=== PATIENT | male | born 1985 | race Caucasian/White ===

== ENCOUNTER 2017-03-03 19:45 | Emergency (ER) | payer BC ==
[2017-03-03 19:46] VITALS: BP 130/77; PULSE 98; RESP 16; TEMP 99; O2SAT 100
--- NOTE | 2017-03-03 20:50 | PD ---
Physical Exam Time Seen by Provider: 20:47 Narrative 31yo M c/o L sided kidney stone. seen yesterday at another hospital and was told he would pass the stone. Was called an hour ago and told by urologist stone may be too big to pass and to go to ER. Reports Left sided flank pain. Denies V, fever, hematuria, dysuria. VSS. Patient seen in triage. Awaiting bed placement. Data Data Last Documented VS Vital Signs Date Time Temp Pulse Resp B/P Pulse Ox O2 Delivery O2 Flow Rate FiO2 03/03/17 19:46 99.0 98 16 130/77 100 Room Air MDM Supervised Visit with LISA: Kirstie Krause Mar 03, 2017 20:50
[2017-03-03] MEDS ORDERED: SODIUM CHLOR 0.9% 1000 ML INJ 1,000 ML IV ONE (20:53)
[2017-03-03] MEDS ORDERED: SODIUM CHLORIDE 0.9% FLUSH 10 ML FLUSH IVF PRN (21:00)
[2017-03-03] MEDS ORDERED: PROM25TA5 PO ×2 (21:17)
[2017-03-03] MEDS ORDERED: PERC5TAB12 PO ×3 (21:17→23:36)
--- NOTE | 2017-03-03 21:47 | RADRPT ---
EXAM DATE/TIME: 03/03/2017 21:26 [facility] COMPARISON: No previous studies available for comparison. INDICATIONS : Left flank pain with hematuria. ORAL CONTRAST: No oral contrast ingested. RADIATION DOSE: 13.88 CTDIvol (mGy) MEDICAL HISTORY : Renal calculi. SURGICAL HISTORY : None. ENCOUNTER: Initial ACUITY: 2 days PAIN SCALE: 8/10 LOCATION: Left flank TECHNIQUE: Volumetric scanning of the abdomen and pelvis was performed. Using automated exposure control and ad justment of the mA and/or kV according to patient size, radiation dose was kept as low as reasonably achievable to obtain optimal diagnostic quality images. FINDINGS: LOWER LUNGS: The visualized lower lungs are clear. LIVER: Homogeneous density without lesion. There is no dilation of the biliary tree. No calcified gallston es. SPLEEN: Normal size without lesion. PANCREAS: Within normal limits. KIDNEYS: The right kidney is unremarkable. There is a proximal left ureteral calculus just below the ureteral pelvic junction measuring approximately 5 x 7 mm in size. There is mild hydronephrosis. ADRENAL GLANDS: Within normal limits. VASCULAR: There is no aortic aneurysm. BOWEL/MESENTERY: The stomach, small bowel, and colon demonstrate no acute abnormality. There is no free intraperitone al air or fluid. ABDOMINAL WALL: Within normal limits. RETROPERITONEUM: There is no lymphadenopathy. BLADDER: No wall thickening or mass. REPRODUCTIVE: Within normal limits. INGUINAL: There is no lymphadenopathy or hernia. MUSCULOSKELETAL: Within normal limits for patient age. CONCLUSION: 1. Proximal left ureteral calculus with mild hydronephrosis. 2. No renal calculi. Donovan Sands MD on March 03, 2017 at 21:43 Board Certified Radiologist. This report was verified electronically.
--- NOTE | 2017-03-03 21:50 | PD ---
HPI Chief Complaint: Flank/Kidney Pain Time Seen by Provider: 21:14 Travel History International Travel<30 days: No Contact w/Intl Traveler<30days: No Traveled to known affect area: No History of Present Illness HPI Patient is a 31-year-old male presents emergency department for evaluation of a kidney stone. Patient is currently traveling from [place] to [place]. He states he is coming on vacation. He usually lives in [place]. He had to stop in [place] because he was having some flank pain all left side. Had a CAT scan at that time which according to him showed a 4 mm kidney stone. He received a call from urologist to go to the nearest emergency department and this may be to be passed. Patient on arrival states his pain is fairly minimal at does come and go but he has not had any fevers nausea or vomiting. He declines pain medicine when offered in the emergency department. PFSH Past Medical History Arthritis: Yes ( gout) Tetanus Vaccination: < 5 Years Influenza Vaccination: No Past Surgical History Surgical History: No Previous Surgery Social History Alcohol Use: No (occ) Tobacco Use: No Substance Use: No Allergies-Medications (Allergen,Severity, Reaction): Coded Allergies: No Known Allergies (Unverified , 03/03/17) Reported Meds & Prescriptions Reported Meds & Active Scripts Active Percocet (Oxycodone-Acetaminophen) 5-325 mg Tab 1 Tab PO Q6H PRN Flomax (Tamsulosin HCl) 0.4 Mg Cap 0.4 Mg PO HS Reported Phenergan (Promethazine HCl) 25 Mg Tab 25 Mg PO Q6H PRN Percocet (Oxycodone-Acetaminophen) 5-325 mg Tab 1 Tab PO Q6H PRN Review of Systems Except as stated in HPI: all other systems reviewed are Neg Physical Exam Narrative GENERAL: Well-developed well-nourished no apparent distress SKIN: Focused skin assessment warm/dry. HEAD: Atraumatic. Normocephalic. EYES: Pupils equal and round. No scleral icterus. No injection or drainage. ENT: No nasal bleeding or discharge. Mucous membranes pink and moist. NECK: Trachea midline. No JVD. CARDIOVASCULAR: Regular rate and rhythm. No murmur appreciated. RESPIRATORY: No accessory muscle use. Clear to auscultation. Breath sounds equal bilaterally. GASTROINTESTINAL: Abdomen soft, non-tender, nondistended. Hepatic and splenic margins not palpable. No CVA tenderness. MUSCULOSKELETAL: No obvious deformities. No clubbing. No cyanosis. No edema. NEUROLOGICAL: Awake and alert. No obvious cranial nerve deficits. Motor grossly within normal limits. Normal speech. PSYCHIATRIC: Appropriate mood and affect; insight and judgment normal. Data Data Last Documented VS Vital Signs Date Time Temp Pulse Resp B/P Pulse Ox O2 Delivery O2 Flow Rate FiO2 03/03/17 23:37 99.0 03/03/17 23:21 97 16 126/[address] Abd/Pel W/O Iv Contrast (03/03/17 ) Complete Blood Count With Diff (03/03/17 20:53) Comprehensive Metabolic Panel (03/03/17 20:53) Urinalysis - C+S If Indicated (03/03/17 20:53) Iv Access Insert/Monitor (03/03/17 20:53) Sodium Chloride 0.9% Flush (Ns Flush) (03/03/17 21:00) Sodium Chlor 0.9% 1000 Ml Inj (Ns 1000 M (03/03/17 20:53) Tamsulosin (Flomax) (03/03/17 23:45) Oxycodone-Acetamin 5-325 Mg (Percocet (03/03/17 23:45) Labs Laboratory Tests Test 03/03/17 03/03/17 21:24 22:20 White Blood Count 5.7 TH/MM3 Red Blood Count 5.01 MIL/MM3 Hemoglobin 14.0 GM/DL Hematocrit 41.6 % Mean Corpuscular Volume 83.1 FL Mean Corpuscular Hemoglobin 28.0 PG Mean Corpuscular Hemoglobin 33.7 % Concent Red Cell Distribution Width 12.8 % Platelet Count 192 TH/MM3 Mean Platelet Volume 9.1 FL Neutrophils (%) (Auto) 47.3 % Lymphocytes (%) (Auto) 31.0 % Monocytes (%) (Auto) 16.1 % Eosinophils (%) (Auto) 4.5 % Basophils (%) (Auto) 1.1 % Neutrophils # (Auto) 2.7 TH/MM3 Lymphocytes # (Auto) 1.8 TH/MM3 Monocytes # (Auto) 0.9 TH/MM3 Eosinophils # (Auto) 0.3 TH/MM3 Basophils # (Auto) 0.1 TH/MM3 CBC Comment DIFF FINAL Differential Comment Sodium Level 140 MEQ/L Potassium Level 4.0 MEQ/L Chloride Level 104 MEQ/L Carbon Dioxide Level 30.6 MEQ/L Anion Gap 5 MEQ/L Blood Urea Nitrogen 10 MG/DL Creatinine 1.15 MG/DL Estimat Glomerular Filtration 74 ML/MIN Rate Random Glucose 67 MG/DL Calcium Level 8.9 MG/DL Total Bilirubin 0.7 MG/DL Aspartate Amino Transf 21 U/L (AST/SGOT) Alanine Aminotransferase 37 U/L (ALT/SGPT) Alkaline Phosphatase 70 U/L Total Protein 7.4 GM/DL Albumin 3.9 GM/DL Urine Color LIGHT-YELLOW Urine Turbidity CLEAR Urine pH 6.5 Urine Specific [place] 1.006 Urine Protein NEG mg/dL Urine Glucose (UA) NEG mg/dL Urine Ketones NEG mg/dL Urine Occult Blood MOD Urine Nitrite NEG Urine Bilirubin NEG Urine Urobilinogen LESS THAN 2.0 MG/DL Urine Leukocyte Esterase NEG Urine RBC 30 /hpf Urine WBC LESS THAN 1 /hpf Urine Mucus FEW /lpf Microscopic Urinalysis Comment CULT NOT INDICATED MDM Medical Decision Making Medical Screen Exam Complete: Yes Emergency Medical Condition: Yes Differential Diagnosis Hydronephrosis, acute kidney injury, urinary tract infection, kidney stones, pyelonephritis Narrative Course Patient was roomed in emergency department, initially it was offered pain medicine and declined. Discussed with him that it is going to be next to impossible to obtain his CAT scan at this hour from an out of state hospital. I recommended that he have a repeat CAT scan to ascertain the size of his kidney stone. Last 24 hours Impressions Abdomen/Pelvis CT 03/03/17 0000 Signed Impressions: Service Date/Time: February 21:26 - CONCLUSION: 1. Proximal left ureteral calculus with mild hydronephrosis. 2. No renal calculi. Donovan Sands MD Patient has no evidence of urinary tract infection he is fairly comfortable in no acute kidney injury. Patient was discussed with Dr. Betancourt and states that the patient 7 mm x 5 mm kidney stone is for cause for concern. Dr. Betancourt does have time on Tuesday see the patient in his office and recommends that if the patient can be comfortable at this course of action be pursued. Patient is afebrile and his pain is well-controlled. Doesn't pain medicine was ordered only to help control his pain should it return to the middle the night. Serafin also suggests starting the patient on Flomax and after discussion of risk benefits competitions and alternatives. He is agreeable for trial. Discussed the recommendations for follow-up with the patient. Recommended he keep this follow-up or consider cutting his vacation short to return to his home town for evaluation by urologist. Discussed return to ED criteria. He would like to be discharged this time. Diagnosis Primary Impression: Kidney stone Referrals: Yohan Betancourt MD Med/Other Pt SpecificInfo: Prescription(s) given Scripts Oxycodone-Acetaminophen (Percocet)5-325 mg Tab1 Tab PO Q6H PRN (PAIN) #12 TAB Ref 0 Prov:Roby Guerrero MD 03/03/17 Tamsulosin (Flomax)0.4 Mg Cap0.4 Mg PO HS #30 CAP Ref 0 Prov:Roby Guerrero MD 03/03/17 Disposition: 01 DISCHARGE HOME Condition: Stable Roby Guerrero MD Mar 03, 2017 21:50
[2017-03-03 21:53] LABS: AUTOMATED NEUTROPHIL # 2.7 TH/MM3 (1.8-7.7); BASOPHIL # 0.1 TH/MM3 (0-0.2); BASOPHIL % 1.1 % (0.0-2.0); EOSINOPHIL # 0.3 TH/MM3 (0-0.4); EOSINOPHIL % 4.5 % (0.0-4.0); HEMATOCRIT 41.6 % (39.0-51.0); HEMO FLAGS DIFF FINAL; LYMPHOCYTE # 1.8 TH/MM3 (1.0-4.8); MEAN CELL VOLUME 83.1 FL (80.0-100.0); MEAN CORPUSCULAR HGB CONC 33.7 % (32.0-36.0); MONO % 16.1 % (0.0-8.0); NEUT % 47.3 % (16.0-70.0); PLATELET COUNT 192 TH/MM3 (150-450); RED BLOOD COUNT 5.01 MIL/MM3 (4.50-5.90); RED CELL DISTRIBUTION WIDTH 12.8 % (11.6-17.2); WHITE BLOOD COUNT 5.7 TH/MM3 (4.0-11.0)
[2017-03-03 22:24] LABS: ALKALINE PHOSPHATASE 70 U/L (45-117); ALT (GPT) 37 U/L (12-78); ANION GAP 5 MEQ/L (5-15); AST (GOT) 21 U/L (15-37); BICARBONATE 30.6 MEQ/L (21.0-32.0); BLOOD UREA NITROGEN 10 MG/DL (7-18); CHLORIDE 104 MEQ/L (98-107); GLOMERULAR FILTRATION RATE 74 ML/MIN (>89); SODIUM (NA) 140 MEQ/L (136-145); TOTAL BILIRUBIN ADULT 0.7 MG/DL (0.2-1.0)
[2017-03-03 22:31] LABS: BLOOD, URINE MOD (NEG); GLUCOSE,URINE NEG (NEG); KETONE, URINE NEG (NEG); MUCUS URINE FEW /lpf (OCC); NITRITE,URINE NEG (NEG); PH, URINE 6.5 (5.0-8.5); URINE COLOR LIGHT-YELLOW (YELLW/STRAW)
[2017-03-03 22:32] LABS: COMMENT (UR) CULT NOT INDICATED; CULTURE IF INDICATED CULT NOT INDICATED
[2017-03-03 23:21] VITALS: BP 126/84; PULSE 97; RESP 16; O2SAT 100
[2017-03-03] MEDS ORDERED: TAMS5CAP PO (23:36)
[2017-03-03 23:37] VITALS: TEMP 99
[2017-03-03] MEDS ORDERED: TAMSULOSIN HCL 0.4 MG CAP PO ONE (23:45)
[2017-03-03] MEDS ORDERED: oxyCODONE/ACETAMINOPHEN 5 MG/325 MG TAB PO ONE (23:45)
== END 2017-03-03 23:47 | disposition home or self-care (01) ==
LOC: NEPD 19:45
DX: N20.0 Calculus of kidney (principal)
CPT/HCPCS: 74176; 80053; 81001; 85025; 96360; J7030

== ENCOUNTER 2017-03-05 15:57 | Inpatient (IN) | payer BC ==
[~2017-03-05] VITALS: Ht 172.7 cm; Wt 94.0 kg
[~2017-03-05 15:57] MED LIST: PERC5TAB12 PO; PROM25TA5 PO; TAMS5CAP PO
[2017-03-05 15:58] VITALS: BP 136/78; PULSE 92; RESP 18; TEMP 98.5; O2SAT 100
[2017-03-05] MEDS ORDERED: ONDANSETRON HCL 4 MG/2 ML VIAL IV PUSH ONE (16:45)
[2017-03-05] MEDS ORDERED: SODIUM CHLOR 0.9% 1000 ML INJ 1,000 ML IV ONE (16:45)
[2017-03-05] MEDS ORDERED: MORPHINE SULFATE 4 MG/ML INJ IV PUSH ONE (16:45)
[2017-03-05] MEDS ORDERED: KETOROLAC TROMETHAMINE 30 MG/ML (IVP) VIAL IV PUSH ONE (16:45)
[2017-03-05 16:52] LABS: AUTOMATED NEUTROPHIL # 3.2 TH/MM3 (1.8-7.7); BASOPHIL % 0.7 % (0.0-2.0); EOSINOPHIL # 0.1 TH/MM3 (0-0.4); EOSINOPHIL % 1.7 % (0.0-4.0); HEMATOCRIT 43.9 % (39.0-51.0); HEMO FLAGS DIFF FINAL; LYMPH % 26.2 % (9.0-44.0); LYMPHOCYTE # 1.5 TH/MM3 (1.0-4.8); MEAN CELL VOLUME 82.7 FL (80.0-100.0); MEAN CORPUSCULAR HGB CONC 33.9 % (32.0-36.0); MONO % 17.4 % (0.0-8.0); PLATELET COUNT 196 TH/MM3 (150-450); RED BLOOD COUNT 5.32 MIL/MM3 (4.50-5.90); RED CELL DISTRIBUTION WIDTH 12.6 % (11.6-17.2); WHITE BLOOD COUNT 5.9 TH/MM3 (4.0-11.0)
[2017-03-05 17:10] LABS: BICARBONATE 27.6 MEQ/L (21.0-32.0); POTASSIUM 3.8 MEQ/L (3.5-5.1)
[2017-03-05] MEDS ORDERED: LEVOFLOXACIN 500 MG PREMIX INJ 100 ML IV ONE (17:15)
--- NOTE | 2017-03-05 17:52 | PD ---
HPI Chief Complaint: Abdominal Pain Time Seen by Provider: 16:31 Travel History International Travel<30 days: No Contact w/Intl Traveler<30days: No Traveled to known affect area: No History of Present Illness HPI Patient is a 31 year old male complaining of abdominal pain and back pain. He was here and diagnosed with a 5 x 7 mm left ureteral calculus causing mild hydronephrosis. He was discharged with pain medicine, flomax, zofran and instructions to follow up with Dr. Betancourt. He says he has been taking these, but the pain has gotten worse. He also reports a fever yesterday of 102. He denies any difficulty urinating. He has not had any vomiting. PFSH Past Medical History Arthritis: Yes ( gout) Past Surgical History Surgical History: No Previous Surgery Social History Alcohol Use: No (occ) Tobacco Use: No Substance Use: No Allergies-Medications (Allergen,Severity, Reaction): Coded Allergies: No Known Allergies (Unverified , 03/03/17) Reported Meds & Prescriptions Reported Meds & Active Scripts Active Percocet (Oxycodone-Acetaminophen) 5-325 mg Tab 1 Tab PO Q6H PRN Flomax (Tamsulosin HCl) 0.4 Mg Cap 0.4 Mg PO HS Reported Phenergan (Promethazine HCl) 25 Mg Tab 25 Mg PO Q6H PRN Percocet (Oxycodone-Acetaminophen) 5-325 mg Tab 1 Tab PO Q6H PRN Review of Systems Except as stated in HPI: all other systems reviewed are Neg General / Constitutional: Positive: Fever, No: Chills HENT: Positive: Headaches Respiratory: No: Shortness of Breath Gastrointestinal: Positive: Nausea, Abdominal Pain, No: Vomiting Genitourinary: Positive: Flank Pain, No: Dysuria Skin: No Change in Pigmentation Neurologic: No: Weakness, Dizziness Physical Exam Narrative GENERAL: Awake and alert, in no acute distress. SKIN: Focused skin assessment warm/dry. HEAD: Atraumatic. Normocephalic. EYES: Pupils equal and round. No scleral icterus. ENT: Mucous membranes pink and moist. NECK: Trachea midline. No JVD. CARDIOVASCULAR: Regular rate and rhythm. No murmur appreciated. RESPIRATORY: No accessory muscle use. Clear to auscultation. Breath sounds equal bilaterally. GASTROINTESTINAL: Abdomen soft, nondistended. Left CVA tenderness. Mild lower abdominal tenderness. No rebound or guarding. MUSCULOSKELETAL: No obvious deformities. No clubbing. No cyanosis. No edema. NEUROLOGICAL: Awake and alert. No obvious cranial nerve deficits. Motor grossly within normal limits. Normal speech. PSYCHIATRIC: Appropriate mood and affect; insight and judgment normal. Data Data Last Documented VS Vital Signs Date Time Temp Pulse Resp B/P Pulse Ox O2 Delivery O2 Flow Rate FiO2 03/05/17 17:02 18 03/05/17 15:58 98.5 92 136/78 100 Orders Complete Blood Count With Diff (03/05/17 16:31) Basic Metabolic Panel (Bmp) (03/05/17 16:31) Urinalysis - C+S If Indicated (03/05/17 16:31) Sodium Chlor 0.9% 1000 Ml Inj (Ns 1000 M (03/05/17 16:45) Ketorolac Inj (Toradol Inj) (03/05/17 16:45) Ondansetron Inj (Zofran Inj) (03/05/17 16:45) Morphine Inj (Morphine Inj) (03/05/17 16:45) Levofloxacin 500 Mg Premix Inj (Levaquin (03/05/17 17:15) Hydromorphone Pf Inj (Dilaudid Pf Inj) (03/05/17 18:00) Admit Order (Ed Use Only) (03/05/17 ) Labs Laboratory Tests Test 03/05/17 03/05/17 16:44 17:53 White Blood Count 5.9 TH/MM3 Red Blood Count 5.32 MIL/MM3 Hemoglobin 14.9 GM/DL Hematocrit 43.9 % Mean Corpuscular Volume 82.7 FL Mean Corpuscular Hemoglobin 28.0 PG Mean Corpuscular Hemoglobin 33.9 % Concent Red Cell Distribution Width 12.6 % Platelet Count 196 TH/MM3 Mean Platelet Volume 9.0 FL Neutrophils (%) (Auto) 54.0 % Lymphocytes (%) (Auto) 26.2 % Monocytes (%) (Auto) 17.4 % Eosinophils (%) (Auto) 1.7 % Basophils (%) (Auto) 0.7 % Neutrophils # (Auto) 3.2 TH/MM3 Lymphocytes # (Auto) 1.5 TH/MM3 Monocytes # (Auto) 1.0 TH/MM3 Eosinophils # (Auto) 0.1 TH/MM3 Basophils # (Auto) 0.0 TH/MM3 CBC Comment DIFF FINAL Differential Comment Sodium Level 139 MEQ/L Potassium Level 3.8 MEQ/L Chloride Level 104 MEQ/L Carbon Dioxide Level 27.6 MEQ/L Anion Gap 7 MEQ/L Blood Urea Nitrogen 11 MG/DL Creatinine 1.04 MG/DL Estimat Glomerular Filtration 83 ML/MIN Rate Random Glucose 94 MG/DL Calcium Level 9.1 MG/DL Urine Color YELLOW Urine Turbidity CLEAR Urine pH 5.5 Urine Specific [place] 1.010 Urine Protein NEG mg/dL Urine Glucose (UA) NEG mg/dL Urine Ketones NEG mg/dL Urine Occult Blood MOD Urine Nitrite NEG Urine Bilirubin NEG Urine Urobilinogen LESS THAN 2.0 MG/DL Urine Leukocyte Esterase NEG Urine RBC 11 /hpf Urine WBC 2 /hpf Urine Bacteria RARE /hpf Urine Mucus FEW /lpf Microscopic Urinalysis Comment CULT NOT INDICATED MDM Medical Decision Making Medical Screen Exam Complete: Yes Emergency Medical Condition: Yes Medical Record Reviewed: Yes Differential Diagnosis UTI vs pyelonephritis vs renal stone Narrative Course Patient is a 31 year old male who comes in complaining of abdominal pain. Patient is afebrile. Exam shows left cva tenderness and lower abdominal tenderness. IV established, labs sent. Cr is 1.04. Given IVF, Zofran, Morphine, Toradol. I spoke with Dr. Poe of urology who suggests admission for pain control. Due to reported fever, given Levaquin. Given hydromorphone for continued pain. Admitted for further management. Diagnosis Primary Impression: Kidney stone Admitting Information Admitting Physician Requests: Admit Condition: Stable Cely Henry MD Mar 05, 2017 17:52
[2017-03-05 17:59] VITALS: BP 106/68; PULSE 84; RESP 16; O2SAT 96
[2017-03-05 18:00] LABS: BACTERIA, URINE RARE /hpf; BLOOD, URINE MOD (NEG); COMMENT (UR) CULT NOT INDICATED; CULTURE IF INDICATED CULT NOT INDICATED; GLUCOSE,URINE NEG (NEG); KETONE, URINE NEG (NEG); MUCUS URINE FEW /lpf (OCC); NITRITE,URINE NEG (NEG); PH, URINE 5.5 (5.0-8.5); URINE COLOR YELLOW (YELLW/STRAW)
[2017-03-05] MEDS ORDERED: oxyCODONE/ACETAMINOPHEN 5 MG/325 MG TAB PO PRN (18:00)
[2017-03-05] MEDS ORDERED: BISACODYL 10 MG SUPP RECTAL PRN (18:00)
[2017-03-05] MEDS ORDERED: SODIUM CHLORIDE 0.9% FLUSH 10 ML FLUSH IV FLUSH PRN (18:00)
[2017-03-05] MEDS ORDERED: ACETAMINOPHEN 325 MG TAB PO PRN (18:00)
[2017-03-05] MEDS ORDERED: HYDROmorphone HCL PF 1 MG/ML VIAL IV PUSH ONE (18:00)
[2017-03-05] MEDS ORDERED: NALOXONE HCL 0.4 MG/ML AMP IV PRN (18:00)
[2017-03-05] MEDS ORDERED: LEVOFLOXACIN 250 MG PREMIX INJ 50 ML IV ONE (18:15)
[2017-03-05] MEDS ORDERED: HYDROmorphone HCL PF 1 MG/ML VIAL IV PUSH PRN (18:15)
--- NOTE | 2017-03-05 18:19 | HHI.HP ---
[facility] Service [facility] Primary Care Physician Non-Staff Admission Diagnosis obstructing renal stone, failed outpatient therapy Diagnoses: Chief Complaint: left kidney stone Travel History International Travel<30 Days: No Contact w/Intl Traveler <30 Da: No Traveled to Known Affected Are: No History of Present Illness 31 y/o male with a history of gout presented to the ED with complaints of abdominal pain, and left kidney stone. Patient was traveling from [place] on Tuesday when he began to have sever stabbing, 10/10 pain in his lower back with radiation to his lower abdomen. He stopped in [place] ED and the did a CT which revealed a left kidney stone, he was given pain medication and fluids and was told he would pass the stone on his own. They continued to drive to and when they were in route to [facility] the urologist from [place] called and said the stone is to large to pass that he needs to go to the ED once he reaches [facility]. He was evaluated in the ED yesterday and Dr. Betancourt said to treat with Percocet and Flomax and come to his office on Tuesday, but to return if he developed fevers. Patient woke up this morning complaining of chills and had a 102 temperature, and increased abdominal pain. He states the pain meds were only helping for a little bit. He denies any chest pain, sob, or dizziness. He does complain of a headache when he has the abdominal pain, and hematuria. Review of Systems Constitutional: COMPLAINS OF: Fever, Chills Respiratory: DENIES: Cough, Sputum production, Shortness of breath Cardiovascular: DENIES: Chest pain, Lower Extremity Edema Gastrointestinal: COMPLAINS OF: Abdominal pain, DENIES: Constipation, Diarrhea , Nausea, Vomiting Genitourinary: COMPLAINS OF: Hematuria Musculoskeletal: COMPLAINS OF: Back pain, DENIES: Neck pain Integumentary: DENIES: Rash Neurologic: COMPLAINS OF: Headache Past Family Social History Past Medical History Gout Past Surgical History Patient denies any surgical history Reported Medications Reported Meds & Active Scripts Active Percocet (Oxycodone-Acetaminophen) 5-325 mg Tab 1 Tab PO Q6H PRN Flomax (Tamsulosin HCl) 0.4 Mg Cap 0.4 Mg PO HS Reported Phenergan (Promethazine HCl) 25 Mg Tab 25 Mg PO Q6H PRN Percocet (Oxycodone-Acetaminophen) 5-325 mg Tab 1 Tab PO Q6H PRN Allergies: Coded Allergies: No Known Allergies (Unverified , 03/03/17) Active Ordered Medications Current Medications Medications (Trade) Dose Ordered Sig/Billie Route Start Time Stop Time Status Last Admin (Levaquin 500 Mg Premix Inj) 100 ml @ 100 mls/hr ONCE ONCE IV 03/05/17 17:15 03/05/17 18:14 03/05/17 17:11 (Percocet 5-325 Mg) 1 tab Q6H PRN PO 03/05/17 18:00 UNV (Flomax) 0.4 mg HS PO 03/05/17 21:00 UNV Family History Patient denies any family history including CAD and DM Social History Patient denies any tobacco, alcohol or illicit drug use. Physical Exam Vital Signs Vital Signs Date Time Temp Pulse Resp B/P Pulse Ox O2 Delivery O2 Flow Rate FiO2 03/05/17 17:59 84 16 106/68 96 Room Air 03/05/17 17:02 18 03/05/17 15:58 98.5 92 18 136/78 100 Physical Exam GENERAL: This is a well-nourished, well-developed patient, in moderate pain SKIN: No rashes, ecchymoses or lesions. Cool and dry. HEAD: Atraumatic. Normocephalic. EYES: Pupils equal round and reactive.No injection or drainage. ENT: Nose without bleeding, purulent drainage or septal hematoma. Airway patent. NECK: Trachea midline. No JVD CARDIOVASCULAR: Regular rate and rhythm without murmurs, gallops, or rubs. RESPIRATORY: Clear to auscultation. Breath sounds equal bilaterally. No wheezes , rales, or rhonchi. GASTROINTESTINAL: Abdomen soft, tender in RLQ and LLQ, nondistended. No hepato- splenomegaly, or palpable masses. Left CVA tenderness MUSCULOSKELETAL: Extremities without clubbing, cyanosis, or edema. No calf tenderness. NEUROLOGICAL: Awake and alert. Motor and sensory grossly within normal limits. Normal speech. Laboratory Laboratory Tests Test 03/05/17 03/05/17 16:44 17:53 White Blood Count 5.9 Red Blood Count 5.32 Hemoglobin 14.9 Hematocrit 43.9 Mean Corpuscular Volume 82.7 Mean Corpuscular Hemoglobin 28.0 Mean Corpuscular Hemoglobin 33.9 Concent Red Cell Distribution Width 12.6 Platelet Count 196 Mean Platelet Volume 9.0 Neutrophils (%) (Auto) 54.0 Lymphocytes (%) (Auto) 26.2 Monocytes (%) (Auto) 17.4 Eosinophils (%) (Auto) 1.7 Basophils (%) (Auto) 0.7 Neutrophils # (Auto) 3.2 Lymphocytes # (Auto) 1.5 Monocytes # (Auto) 1.0 Eosinophils # (Auto) 0.1 Basophils # (Auto) 0.0 CBC Comment DIFF FINAL Differential Comment Sodium Level 139 Potassium Level 3.8 Chloride Level 104 Carbon Dioxide Level 27.6 Anion Gap 7 Blood Urea Nitrogen 11 Creatinine 1.04 Estimat Glomerular Filtration 83 Rate Random Glucose 94 Calcium Level 9.1 Urine Color YELLOW Urine Turbidity CLEAR Urine pH 5.5 Urine Specific [place] 1.010 Urine Protein NEG Urine Glucose (UA) NEG Urine Ketones NEG Urine Occult Blood MOD Urine Nitrite NEG Urine Bilirubin NEG Urine Urobilinogen LESS THAN 2.0 Urine Leukocyte Esterase NEG Urine RBC 11 Urine WBC 2 Urine Bacteria RARE Urine Mucus FEW Microscopic Urinalysis Comment CULT NOT INDICATED Result Diagram: 03/05/17 1644 03/05/17 1644 Imaging No new imaging studies Assessment and Plan Problem List: (1) Kidney stone ICD Code: N20.0 Status: Acute Assessment and Plan 31 y/o male with a history of gout presented to the ED with complaints of abdominal pain, and left kidney stone. Patient was traveling from [place] on Tuesday when he began to have sever stabbing, 10/10 pain in his lower back with radiation to his lower abdomen. He stopped in [place] ED and the did a CT which revealed a left kidney stone, he was given pain medication and fluids and was told he would pass the stone on his own. They continued to drive to and when they were in route to [facility] the urologist from [place] called and said the stone is to large to pass that he needs to go to the ED once he reaches [facility]. He was evaluated in the ED yesterday and Dr. Betancourt said to treat with Percocet and Flomax and come to his office on Tuesday, but to return if he developed fevers. Patient woke up this morning complaining of chills and had a 102 temperature, and increased abdominal pain. Kidney stone, left, was told by ER DR in [place] Labs: Ua shows occult blood -Consult urology, Dr Acevedo plans to see patient in am -Pain management with IV Dilaudid and Percocet PO -Levaquin IV -NPO after midnight -Supportive IVF DVT prophylaxis: SCDs Code Status Full Code. Discussed Condition With Patient, patients and Dr. Ovalle Patient seen in the room will follow Urology specialist recommendations. agree with management. Physician Certification 2 Midnight Certification Type: Admission for Inpatient Services Order for Inpatient Services The services are ordered in accordance with Medicare regulations or non- Medicare payer requirements, as applicable. In the case of services not specified as inpatient-only, they are appropriately provided as inpatient services in accordance with the 2-midnight benchmark. Estimated LOS (days): 1 days is the estimated time the patient will need to remain in the hospital, assuming treatment plan goals are met and no additional complications. Post-Hospital Plan: Home Rosetta Vizcaino Mar 05, 2017 18:19 Toni Handy MD Mar 05, 2017 18:52
[2017-03-05] MEDS: KETOROLAC TROMETHAMINE 30 MG/ML (IVP) VIAL IV PUSH SCH ×2 (18:30→23:16)
[2017-03-05] MEDS: SODIUM CHLOR 0.9% 1000 ML INJ 1,000 ML IV SCH (18:38)
[2017-03-05] MEDS: DOCUSATE SODIUM 100 MG CAP PO SCH (18:38)
[2017-03-05 20:00] VITALS: BP 122/60; PULSE 77; RESP 18; TEMP 96.6; O2SAT 98
[2017-03-05] MEDS: TAMSULOSIN HCL 0.4 MG CAP PO SCH (20:13)
[2017-03-05] MEDS: ONDANSETRON HCL 4 MG/2 ML VIAL IVP PRN (20:13)
[2017-03-05] MEDS: SODIUM CHLORIDE 0.9% FLUSH 10 ML FLUSH IV FLUSH SCH (20:14)
[2017-03-06] VITALS (7 sets, daily range): BP systolic 105–127; BP diastolic 57–68; PULSE 68–77; RESP 18–20; TEMP 96.2–97.3; O2SAT 97–98
[2017-03-06] MEDS: DOCUSATE SODIUM 100 MG CAP PO SCH ×2 (00:29→18:00)
[2017-03-06] MEDS: SODIUM CHLOR 0.9% 1000 ML INJ 1,000 ML IV SCH ×3 (02:14→20:48)
[2017-03-06] MEDS: ONDANSETRON HCL 4 MG/2 ML VIAL IVP PRN ×2 (02:16→23:05)
[2017-03-06] MEDS: KETOROLAC TROMETHAMINE 30 MG/ML (IVP) VIAL IV PUSH SCH ×3 (05:10→19:10)
--- NOTE | 2017-03-06 06:35 | RADRPT ---
EXAM DATE/TIME: 03/06/2017 04:17 [facility] COMPARISON: CT ABDOMEN & PELVIS W/O CONTRAST, March 03, 2017, 21:26. INDICATIONS : Left uretheral stone. MEDICAL HISTORY : Renal calculi. SURGICAL HISTORY : None. ENCOUNTER: Subsequent ACUITY: 2 days PAIN SCORE: 8/10 LOCATION: Left flank FINDINGS: The bowel gas pattern appears normal. No free air is identified. No organomegaly is evident. There co ntinues to be a stone at the level of the left ureteropelvic junction unchanged from the previous CT scan CONCLUSION: 1. Continued 5 mm stone at the level of the left ureteropelvic junction Deng Hearn MD on March 06, 2017 at 6:33 Board Certified Radiologist. This report was verified electronically.
--- NOTE | 2017-03-06 08:34 | HHI.PR ---
Subjective Remarks This is a pleasant 31 y/o Male with Gout, who came to ER 03/05/17 with abdominal pain and left kidney stone she has history of Urolithiasis, scheduled to go to see Urology specialist for consult as outpatient but due to Abdominal pain came to ER, had Fever and Hematuria. admitted for Urology specialist evaluation, given IV fluids, Pain medicine and antibiotics. 03/06: Seen in his bedroom and discussed with nurse Miss Camacho no new issues, he continue NPO, for probable procedure later today, No nausea, vomit or diarrhea. improving pain, Objective Vital Signs Date Time Temp Pulse Resp B/P Pulse Ox O2 Delivery O2 Flow Rate FiO2 03/06/17 04:00 96.3 73 18 115/59 98 03/06/17 00:00 96.7 77 19 127/68 97 03/05/17 20:00 96.6 77 18 122/60 98 03/05/17 17:59 84 16 106/68 96 Room Air 03/05/17 17:02 18 03/05/17 15:58 98.5 92 18 136/78 100 I/O 03/05/17 03/05/17 03/05/17 03/06/17 03/06/17 03/06/17 07:00 15:00 23:00 07:00 15:00 23:00 Intake Total 480 ml 0 ml Output Total 400 ml Balance 480 ml -400 ml Intake Oral 480 ml 0 ml Output Urine Total 400 ml Result Diagram: 03/05/17 1644 03/05/17 1644 Imaging Last Impressions Abdomen X-Ray 03/06/17 0600 Signed Impressions: Service Date/Time: Monday, March 06, 2017 04:17 - CONCLUSION: 1. Continued 5 mm stone at the level of the left ureteropelvic junction Deng Hearn MD Procedures No procedures performed. Other Results Laboratory Tests Test 03/05/17 03/05/17 16:44 17:53 White Blood Count 5.9 TH/MM3 Red Blood Count 5.32 MIL/MM3 Hemoglobin 14.9 GM/DL Hematocrit 43.9 % Mean Corpuscular Volume 82.7 FL Mean Corpuscular Hemoglobin 28.0 PG Mean Corpuscular Hemoglobin 33.9 % Concent Red Cell Distribution Width 12.6 % Platelet Count 196 TH/MM3 Mean Platelet Volume 9.0 FL Neutrophils (%) (Auto) 54.0 % Lymphocytes (%) (Auto) 26.2 % Monocytes (%) (Auto) 17.4 % Eosinophils (%) (Auto) 1.7 % Basophils (%) (Auto) 0.7 % Neutrophils # (Auto) 3.2 TH/MM3 Lymphocytes # (Auto) 1.5 TH/MM3 Monocytes # (Auto) 1.0 TH/MM3 Eosinophils # (Auto) 0.1 TH/MM3 Basophils # (Auto) 0.0 TH/MM3 CBC Comment DIFF FINAL Differential Comment Sodium Level 139 MEQ/L Potassium Level 3.8 MEQ/L Chloride Level 104 MEQ/L Carbon Dioxide Level 27.6 MEQ/L Anion Gap 7 MEQ/L Blood Urea Nitrogen 11 MG/DL Creatinine 1.04 MG/DL Estimat Glomerular Filtration 83 ML/MIN Rate Random Glucose 94 MG/DL Calcium Level 9.1 MG/DL Urine Color YELLOW Urine Turbidity CLEAR Urine pH 5.5 Urine Specific [place] 1.010 Urine Protein NEG mg/dL Urine Glucose (UA) NEG mg/dL Urine Ketones NEG mg/dL Urine Occult Blood MOD Urine Nitrite NEG Urine Bilirubin NEG Urine Urobilinogen LESS THAN 2.0 MG/DL Urine Leukocyte Esterase NEG Urine RBC 11 /hpf Urine WBC 2 /hpf Urine Bacteria RARE /hpf Urine Mucus FEW /lpf Microscopic Urinalysis Comment CULT NOT INDICATED Objective Remarks GENERAL: This is a well-nourished, well-developed patient, in moderate pain SKIN: No rashes, ecchymoses or lesions. Cool and dry. HEAD: Atraumatic. Normocephalic. EYES: Pupils equal round and reactive.No injection or drainage. ENT: Nose without bleeding, purulent drainage or septal hematoma. Airway patent. NECK: Trachea midline. No JVD CARDIOVASCULAR: Regular rate and rhythm without murmurs, gallops, or rubs. RESPIRATORY: Clear to auscultation. Breath sounds equal bilaterally. No wheezes , rales, or rhonchi. GASTROINTESTINAL: Abdomen soft, tender in RLQ and LLQ, nondistended. No hepato- splenomegaly, or palpable masses. Left CVA tenderness MUSCULOSKELETAL: Extremities without clubbing, cyanosis, or edema. No calf tenderness. NEUROLOGICAL: Awake and alert. Motor and sensory grossly within normal limits. Normal speech. Medications and IVs Current Medications Medications (Trade) Dose Ordered Sig/Billie Route Start Time Stop Time Status Last Admin (Percocet 5-325 Mg) 1 tab Q6H PRN PO 03/05/17 18:00 Tamsulosin HCl 0.4 mg 0.4 mg HS PO 03/05/17 21:00 03/05/17 20:13 (NS 1000 ml Inj) 1,000 ml @ 125 mls/hr Q8H IV 03/05/17 17:59 03/06/17 02:14 (NS Flush) 2 ml UNSCH PRN IV FLUSH 03/05/17 18:00 (NS Flush) 2 ml BID IV FLUSH 03/05/17 21:00 (Tylenol) 650 mg Q4H PRN PO 03/05/17 18:00 (Zofran Inj) 4 mg Q6H PRN IVP 03/05/17 18:00 03/06/17 02:16 (Dulcolax Supp) 10 mg DAILY PRN RECTAL 03/05/17 18:00 (Colace) 100 mg Q12H PO 03/05/17 18:00 03/05/17 18:38 Naloxone HCl 0.4 mg 0.4 mg UNSCH PRN IV 03/05/17 18:00 (Levaquin 750 Mg Premix Inj) 150 ml @ 100 mls/hr Q24H IV 03/06/17 17:00 (Dilaudid Pf Inj) 1 mg Q4H PRN IV PUSH 03/05/17 18:15 (Toradol Inj) 15 mg Q6HR IV PUSH 03/05/17 18:30 03/06/17 05:10 A/P Assessment and Plan 1. Urolithiasis IV fluids, Levaquin IV 750 mg daily, Pain management, Urology specialist for probable procedure later today awaiting final by Specialist. DVT prophylaxis: SCDs Code Status Full Code. Discussed Condition With Patient and nurse Miss Camacho. Discharge Planning Expected by tomorrow. Toni Handy MD Mar 06, 2017 08:34
[2017-03-06 09:10] LABS: AUTOMATED NEUTROPHIL # 2.3 TH/MM3 (1.8-7.7); BASOPHIL % 0.6 % (0.0-2.0); EOSINOPHIL # 0.2 TH/MM3 (0-0.4); EOSINOPHIL % 4.1 % (0.0-4.0); HEMATOCRIT 40.3 % (39.0-51.0); HEMO FLAGS DIFF FINAL; LYMPH % 31.7 % (9.0-44.0); LYMPHOCYTE # 1.5 TH/MM3 (1.0-4.8); MEAN CELL VOLUME 82.3 FL (80.0-100.0); MEAN CORPUSCULAR HEMOGLOBIN 27.7 PG (27.0-34.0); MEAN CORPUSCULAR HGB CONC 33.7 % (32.0-36.0); MONO % 12.8 % (0.0-8.0); NEUT % 50.8 % (16.0-70.0); PLATELET COUNT 169 TH/MM3 (150-450); RED BLOOD COUNT 4.89 MIL/MM3 (4.50-5.90); RED CELL DISTRIBUTION WIDTH 12.8 % (11.6-17.2); WHITE BLOOD COUNT 4.6 TH/MM3 (4.0-11.0)
[2017-03-06 09:37] LABS: BICARBONATE 24.8 MEQ/L (21.0-32.0)
[2017-03-06] MEDS: SODIUM CHLORIDE 0.9% FLUSH 10 ML FLUSH IV FLUSH SCH ×2 (09:40→20:48)
--- NOTE | 2017-03-06 10:03 | RADRPT ---
EXAM DATE/TIME: 03/06/2017 08:46 [facility] COMPARISON: CT ABDOMEN & PELVIS W/O CONTRAST, March 03, 2017, 21:26. INDICATIONS : Hydronephrosis. MEDICAL HISTORY : Abdominal pain. Kidney stone. SURGICAL HISTORY : None. ENCOUNTER: Subsequent ACUITY: 3 days PAIN SCORE: 7/10 LOCATION: Bilateral flank MEASUREMENTS: RIGHT KIDNEY: 11.5 x 6.4 x 5.7 cm LEFT KIDNEY: 12.1 x 5.9 x 5.9 cm FINDINGS: There is no hydronephrosis on the right side, however there is slight hydronephrosis on the left side and the proximal ureteral stone seen on the patient's CT examination previously is not visualized pr obably technical. No definite solid mass is identified. No definite stone is identified for techniq ue. The bladder is grossly intact for technique and not being completely distended during the exam. CONCLUSION: Slight hydronephrosis in left kidney. Perry Berger MD on March 06, 2017 at 10:01 Board Certified Radiologist. This report was verified electronically.
[2017-03-06] MEDS ORDERED: PROPOFOL 200 MG/20 ML AMP IV ONE (12:00)
[2017-03-06] MEDS ORDERED: ONDANSETRON HCL 4 MG/2 ML VIAL IV PUSH ONE (12:00)
--- NOTE | 2017-03-06 16:47 | MB ---
cc: MAKAYLA HADLEY MD DATE OF CONSULTATION: 03/06/2017. REASON FOR CONSULTATION: 1. Left proximal ureteral stone. 2. Left flank pain. HISTORY OF PRESENT ILLNESS: The patient is a 31-year-old male who presented to the [facility] yesterday with persistent left flank pain after failing outpatient treatment of a known left proximal ureteral stone. The patient is from [place] and was driving down last week for a family vacation; however, as he was driving, he developed acute onset of left flank pain 10/10 in nature while passing through [place]. He stopped at a hospital in [place] where he was found to have a proximal left ureteral stone. He was managed conservatively and was told that the stone would pass on its own. He was subsequently discharged and continued his drive here to [place], [place]. Several hours later, the urologist in [place] called him to schedule him for treatment of the stone; however, the patient mentioned he was already near [place]. He was advised at that time to go to the nearest hospital for further evaluation so he came to the [facility] on afternoon with this known stone. He continued to have left flank pain and some nausea. He was managed conservatively and had an appointment made to followup with Dr. Betancourt on Tuesday. However, over the course of the next 48 hours, his pain continued to become more constant in nature with an intensity level of 10/10. He developed a headache and became severely nauseous and then he came back to the emergency room yesterday for further evaluation . He denies prior episodes of feeling like this in the past. He denies a prior history of kidney stones or a family history of kidney stones. He denies dysuria or hematuria, fever or chills at this time; however, his pain continues to be 10/10 despite IV pain medication. He is scheduled to head back to [place] this Tuesday. He denies a family history of prostate cancer. He denies a history of urinary tract infections. PAST MEDICAL HISTORY: History of gout. PAST SURGICAL HISTORY: Circumcision. HOME MEDICATIONS: None. ALLERGIES: NO KNOWN DRUG ALLERGIES. FAMILY HISTORY: Denies history of kidney stones or genitourinary malignancies. SOCIAL HISTORY: Denies alcohol, tobacco or illicit drug use. He lives with his and is visiting from [place]. REVIEW OF SYSTEMS: See the history of present illness, otherwise all systems reviewed and were otherwise negative. PHYSICAL EXAMINATION: VITAL SIGNS: Temperature 96.2, pulse 60, respiratory rate 20, blood pressure 121/62, saturation 97% on room air. GENERAL: In general, he is alert and oriented times three and in no apparent distress, pleasant and cooperative gentleman who appears his stated age. HEAD, EYES, EARS, NOSE, THROAT: Head is normocephalic and atraumatic. Extraocular muscles intact. No scleral icterus. NECK: The neck is supple. Trachea is midline. No jugular venous distention. SKIN: No ulcers or rashes. Mucous membranes are dry. LUNGS: Clear to auscultation bilaterally. No wheezes, rales or rhonchi. HEART: Regular rhythm. No murmurs, rubs or gallops. ABDOMEN: The abdomen is soft, nontender and nondistended. Positive bowel sounds. GENITOURINARY: No costovertebral angle tenderness bilaterally. The penis is circumcised. Testes descended bilaterally and normal size and consistency without mass. EXTREMITIES: Nontender. No cyanosis, clubbing or edema. NEUROLOGIC: Cranial nerves II through XII intact. Strength is 5/5 in all four extremities. PSYCHIATRIC: Normal affect. LABORATORY DATA: White count 4.6, hemoglobin 13.6, hematocrit 40.3, platelet count 169,000. Sodium 140, potassium 4.0, chloride 108, bicarbonate 24.8, BUN 11, creatinine 0.89. His urine showed moderate red blood cells and two white blood cells. IMAGING STUDIES: A KUB was reviewed and compared with the radiologist's report. There is a 6 mm proximal left ureteral stone visualized consistent with the previous CT scan two days ago. ASSESSMENT AND PLAN: The patient is a 31-year-old male with persistent left flank pain secondary to a proximal left ureteral stone with mild hydronephrosis. PLAN: 1. Will keep the patient NPO. 2. Will schedule him for the operating room later today for cystoscopy, left retrograde pyelogram and left stent placement. I discussed the risks, benefits, and alternatives with him including the need for definitive treatment of the stone as an outpatient as well as removal of the stent subsequently which can be done back in his hometown of [place], [place]. The patient understood all these risks and agreed with the plan. MD MARIAH Pham/GLORIA /3:27 PM /4:34 PM
[2017-03-06] MEDS: LEVOFLOXACIN 750 MG PREMIX INJ 150 ML IV SCH ×2 (17:00→19:10)
[2017-03-06] MEDS ORDERED: MIDAZOLAM HCL 2 MG/2 ML VIAL ONE (17:24)
[2017-03-06] MEDS ORDERED: fentaNYL CITRATE 250 MCG/5 ML AMP ONE (17:24)
[2017-03-06] MEDS ORDERED: IOHEXOL 350 MG/ML 50 ML BTL (for RAD DIAG) ONE (18:25)
[2017-03-06] MEDS ORDERED: DO NOT ADM ANY ANTICOAGULANT DRUGS PRN (18:50)
--- NOTE | 2017-03-06 20:17 | MP ---
cc: MAKAYLA HADLEY MD DATE OF SURGERY: 03/06/2017. PREOPERATIVE DIAGNOSIS: 1. Left proximal ureteral stone with mild hydronephrosis 2. Left flank pain POSTOPERATIVE DIAGNOSIS: 1. Left proximal ureteral stone with mild hydronephrosis 2. Left flank pain. OPERATIVE PROCEDURE PERFORMED: 1. Cystourethroscopy. 2. Left retrograde pyelogram. 3. Insertion of left ureteral stent. SURGEON: Makayla Hadley MD. ANESTHESIA: General. COMPLICATIONS: None. PREOPERATIVE ANTIBIOTICS: Levaquin 750 milligrams IV. DRAINS: A 6 x 26 double-J left ureteral stent. ESTIMATED BLOOD LOSS: Minimal. DISPOSITION: Stable to recovery. INDICATIONS FOR THE PROCEDURE: The patient is a 31-year-old male with left flank pain. The patient was found to have proximal left ureteral stone with mild hydronephrosis nephrosis. He failed outpatient therapy and was admitted for pain control. Due to these findings, he was then set up for cystoscopy and stent placement. After the risks, benefits, and alternatives were explained, the patient was agreed to the procedure and informed consent was obtained. DESCRIPTION OF THE PROCEDURE IN DETAIL: The patient was properly identified and brought back to the cystoscopy suite and was laid supine on the cystoscopy table. A proper time-out was performed under the direction of anesthesiology. The patient was then induced under general anesthetic. Preoperative antibiotics in the form of Levaquin 750 milligrams IV were given at the start of the procedure. The patient was then placed in the dorsal lithotomy position and prepped and draped in the normal sterile surgical fashion. A rigid cystoscope was then carefully passed into his bladder per urethra without any difficulty. Desai cystoscopy was performed which showed no evidence of bladder tumor, stone, diverticula or trabeculations. Both ureteral orifices were identified and appeared to be in anatomic location. The patient had a small median prostatic lobe. Both ureteral orifices were of normal configuration. Using a 5-Hungarian open-ended ureteral catheter, I gently passed it just inside the left orifice. Left retrograde pyelogram was performed which showed a filling defect in the proximal ureter corresponding to both his CT scan and KUB. He did have mild hydronephrosis but no other filling defects were seen. At this point, I passed a guidewire through the indwelling ureteral catheter up into the left kidney under the guidance of fluoroscopy. The ureteral catheter was then removed leaving the guidewire in place. A 6 x 26 double-J stent was then passed carefully over the wire up into the left kidney and position was confirmed by fluoroscopy. At this point, the bladder was then drained and the scope was removed. This concluded the procedure. The patient was extubated and sent to recovery in stable condition. He will be transferred back to the floor. From a urology standpoint, it is okay for him to be discharged home. He can then followup with a urologist in his hometown of [place], [place] for definitive treatment of the stone. The case was discussed with his , Chanel, who agreed with the plan. MD MARIAH Pham/GLORIA /6:44 PM /8:04 PM
[2017-03-06] MEDS: TAMSULOSIN HCL 0.4 MG CAP PO SCH (20:45)
[2017-03-07] VITALS: BP 109/56; PULSE 73; RESP 18; TEMP 96.3; O2SAT 98
[2017-03-07] MEDS: KETOROLAC TROMETHAMINE 30 MG/ML (IVP) VIAL IV PUSH SCH ×2 (00:09→05:36)
[2017-03-07 04:00] VITALS: BP 99/55; PULSE 73; RESP 17; TEMP 96.5; O2SAT 98
[2017-03-07] MEDS: DOCUSATE SODIUM 100 MG CAP PO SCH (05:36)
--- NOTE | 2017-03-07 07:40 | HHI.PR ---
Subjective Remarks This is a pleasant 31 y/o Male with Gout, who came to ER 03/05/17 with abdominal pain and left kidney stone she has history of Urolithiasis, scheduled to go to see Urology specialist for consult as outpatient but due to Abdominal pain came to ER, had Fever and Hematuria. admitted for Urology specialist evaluation, given IV fluids, Pain medicine and antibiotics. 03/06: he continue NPO, for probable procedure later today. 03/07: With diagnosis of Left Proximal ureteral stone with mild hydronephrosis, Status post Cystourethroscopy Left retrograde pyelogram, Insertion of left ureteral Stent. by Doctor Eric Poe 03/06/17 okay to discharge from Urology specialist standpoint. no Nausea, vomit or diarrhea. Objective Vital Signs Date Time Temp Pulse Resp B/P Pulse Ox O2 Delivery O2 Flow Rate FiO2 03/07/17 04:00 96.5 73 17 99/55 98 03/07/17 00:00 96.3 73 18 109/56 98 03/06/17 21:18 97 21 03/06/17 20:00 97.3 69 18 105/57 98 03/06/17 19:20 98.0 76 16 134/68 97 Room Air 03/06/17 19:15 77 16 151/77 97 Room Air 03/06/17 19:00 81 16 155/76 96 Room Air 03/06/17 18:46 97.8 93 14 157/82 97 Room Air 03/06/17 17:40 97 03/06/17 15:50 96.9 70 20 121/60 98 03/06/17 11:50 96.2 68 20 121/62 97 03/06/17 07:50 96.2 68 20 121/60 98 I/O 03/06/17 03/06/17 03/06/17 03/07/17 03/07/17 03/07/17 07:00 15:00 23:00 07:00 15:00 23:00 Intake Total 0 ml 0 ml 1670 ml 480 ml Output Total 400 ml 1000 ml 150 ml 550 ml Balance -400 ml -1000 ml 1520 ml -70 ml Intake Oral 0 ml 0 ml 720 ml 480 ml IV Total 250 ml Other 700 ml Output Urine Total 400 ml 1000 ml 150 ml 550 ml Estimated Blood Loss 0 ml Other 0 ml # Bowel Movements 0 Result Diagram: 03/06/17 0844 03/06/17 0814 Imaging Last Impressions Renal Ultrasound 03/06/17 06 Signed Impressions: Service Date/Time: Monday, March 06, 2017 08:46 - CONCLUSION: Slight hydronephrosis in left kidney. Perry Berger MD Abdomen X-Ray 03/06/17 06 Signed Impressions: Service Date/Time: Monday, March 06, 2017 04:17 - CONCLUSION: 1. Continued 5 mm stone at the level of the left ureteropelvic junction Deng Hearn MD Procedures No procedures performed. Other Results Laboratory Tests Test 03/05/17 03/06/17 03/06/17 17:53 08:14 08:44 Urine Color YELLOW Urine Turbidity CLEAR Urine pH 5.5 Urine Specific [place] 1.010 Urine Protein NEG mg/dL Urine Glucose (UA) NEG mg/dL Urine Ketones NEG mg/dL Urine Occult Blood MOD Urine Nitrite NEG Urine Bilirubin NEG Urine Urobilinogen LESS THAN 2.0 MG/DL Urine Leukocyte Esterase NEG Urine RBC 11 /hpf Urine WBC 2 /hpf Urine Bacteria RARE /hpf Urine Mucus FEW /lpf Microscopic Urinalysis Comment CULT NOT INDICATED Sodium Level 140 MEQ/L Potassium Level 4.0 MEQ/L Chloride Level 108 MEQ/L Carbon Dioxide Level 24.8 MEQ/L Anion Gap 7 MEQ/L Blood Urea Nitrogen 11 MG/DL Creatinine 0.89 MG/DL Estimat Glomerular Filtration 99 ML/MIN Rate Random Glucose 89 MG/DL Calcium Level 8.3 MG/DL White Blood Count 4.6 TH/MM3 Red Blood Count 4.89 MIL/MM3 Hemoglobin 13.6 GM/DL Hematocrit 40.3 % Mean Corpuscular Volume 82.3 FL Mean Corpuscular Hemoglobin 27.7 PG Mean Corpuscular Hemoglobin 33.7 % Concent Red Cell Distribution Width 12.8 % Platelet Count 169 TH/MM3 Mean Platelet Volume 8.4 FL Neutrophils (%) (Auto) 50.8 % Lymphocytes (%) (Auto) 31.7 % Monocytes (%) (Auto) 12.8 % Eosinophils (%) (Auto) 4.1 % Basophils (%) (Auto) 0.6 % Neutrophils # (Auto) 2.3 TH/MM3 Lymphocytes # (Auto) 1.5 TH/MM3 Monocytes # (Auto) 0.6 TH/MM3 Eosinophils # (Auto) 0.2 TH/MM3 Basophils # (Auto) 0.0 TH/MM3 CBC Comment DIFF FINAL Differential Comment Objective Remarks GENERAL: No distress. SKIN: No rashes, ecchymoses or lesions. Cool and dry. HEAD: Atraumatic. Normocephalic. EYES: Pupils equal round and reactive.No injection or drainage. ENT: Nose without bleeding, purulent drainage or septal hematoma. Airway patent. NECK: Trachea midline. No JVD CARDIOVASCULAR: Regular rate and rhythm without murmurs, gallops, or rubs. RESPIRATORY: Clear to auscultation. Breath sounds equal bilaterally. No wheezes , rales, or rhonchi. GASTROINTESTINAL: Abdomen soft, Non tender. MUSCULOSKELETAL: Extremities without clubbing, cyanosis, or edema. No calf tenderness. NEUROLOGICAL: Awake and alert. Motor and sensory grossly within normal limits. Normal speech. Medications and IVs Current Medications Medications (Trade) Dose Ordered Sig/Billie Route Start Time Stop Time Status Last Admin (Percocet 5-325 Mg) 1 tab Q6H PRN PO 03/05/17 18:00 Tamsulosin HCl 0.4 mg 0.4 mg HS PO 03/05/17 21:00 03/06/17 20:45 (NS 1000 ml Inj) 1,000 ml @ 125 mls/hr Q8H IV 03/05/17 17:59 03/06/17 20:48 (NS Flush) 2 ml UNSCH PRN IV FLUSH 03/05/17 18:00 (NS Flush) 2 ml BID IV FLUSH 03/05/17 21:00 03/06/17 20:48 (Tylenol) 650 mg Q4H PRN PO 03/05/17 18:00 (Zofran Inj) 4 mg Q6H PRN IVP 03/05/17 18:00 03/06/17 23:05 (Dulcolax Supp) 10 mg DAILY PRN RECTAL 03/05/17 18:00 (Colace) 100 mg Q12H PO 03/05/17 18:00 03/07/17 05:36 Naloxone HCl 0.4 mg 0.4 mg UNSCH PRN IV 03/05/17 18:00 (Levaquin 750 Mg Premix Inj) 150 ml @ 100 mls/hr Q24H IV 03/06/17 17:00 (Dilaudid Pf Inj) 1 mg Q4H PRN IV PUSH 03/05/17 18:15 03/06/17 09:30 (Toradol Inj) 15 mg Q6HR IV PUSH 03/05/17 18:30 03/07/17 05:36 Miscellaneous Information ALL NURSING DEPARTME... UNSCH PRN .XX 03/06/17 18:50 03/07/17 18:49 A/P Assessment and Plan 1. Urolithiasis IV fluids, Levaquin IV 750 mg daily, Pain management. With diagnosis of Left Proximal ureteral stone with mild hydronephrosis, Status post Cystourethroscopy Left retrograde pyelogram, Insertion of left ureteral Stent. by Doctor Eric Poe 03/06/17 okay to discharge from Urology specialist given scripts by Specialist to follow as outpatient. DVT prophylaxis: SCDs Code Status Full Code. Discussed Condition With Patient, His and Nurse Miss Fontana and his three children Discharge Planning Discharge Home today Toni Handy MD Mar 07, 2017 07:40
[2017-03-07 08:00] VITALS: BP 116/63; PULSE 66; RESP 20; TEMP 96.6; O2SAT 98; O2SAT 99
[2017-03-07] MEDS: SODIUM CHLORIDE 0.9% FLUSH 10 ML FLUSH IV FLUSH SCH (09:00)
--- NOTE | 2017-03-07 11:29 | HHI.DS ---
Discharge Summary Admission Date Mar 05, 2017 at 17:53 Discharge Date: Mar 07, 2017 Admitting Diagnosis obstructing renal stone, failed outpatient therapy (1) Kidney stone ICD Code: N20.0 Diagnosis: Principal Procedures Status post Cystourethroscopy Left retrograde pyelogram, Insertion of left ureteral Stent. by Doctor Eric Poe 03/06/17 Brief History - From Admission 31 y/o male with a history of gout presented to the ED with complaints of abdominal pain, and left kidney stone. Patient was traveling from [place] on Tuesday when he began to have sever stabbing, 10/10 pain in his lower back with radiation to his lower abdomen. He stopped in [place] ED and the did a CT which revealed a left kidney stone, he was given pain medication and fluids and was told he would pass the stone on his own. They continued to drive to and when they were in route to [facility] the urologist from [place] called and said the stone is to large to pass that he needs to go to the ED once he reaches [facility]. He was evaluated in the ED yesterday and Dr. Betancourt said to treat with Percocet and Flomax and come to his office on Tuesday, but to return if he developed fevers. Patient woke up this morning complaining of chills and had a 102 temperature, and increased abdominal pain. He states the pain meds were only helping for a little bit. He denies any chest pain, sob, or dizziness. He does complain of a headache when he has the abdominal pain, and hematuria. CBC/BMP: 03/06/17 0844 03/06/17 0814 Significant Findings Laboratory Tests Test 03/05/17 03/05/17 03/06/17 03/06/17 16:44 17:53 08:14 08:44 Monocytes (%) (Auto) 17.4 % 12.8 % (0.0-8.0) (0.0-8.0) Monocytes # (Auto) 1.0 TH/MM3 (0-0.9) Estimat Glomerular Filtration 83 ML/MIN (>89) Rate Urine Occult Blood MOD (NEG) Urine RBC 11 /hpf (0-3) Urine Bacteria RARE /hpf (NONE) Urine Mucus FEW /lpf (OCC) Chloride Level 108 MEQ/L (98-107) Calcium Level 8.3 MG/DL (8.5-10.1) Eosinophils (%) (Auto) 4.1 % (0.0-4.0) Imaging Last Impressions Renal Ultrasound 03/06/17 0600 Signed Impressions: Service Date/Time: Monday, March 06, 2017 08:46 - CONCLUSION: Slight hydronephrosis in left kidney. Perry Berger MD Abdomen X-Ray 03/06/17 0600 Signed Impressions: Service Date/Time: Monday, March 06, 2017 04:17 - CONCLUSION: 1. Continued 5 mm stone at the level of the left ureteropelvic junction Deng Hearn MD PE at Discharge GENERAL: No distress. SKIN: No rashes, ecchymoses or lesions. Cool and dry. HEAD: Atraumatic. Normocephalic. EYES: Pupils equal round and reactive.No injection or drainage. ENT: Nose without bleeding, purulent drainage or septal hematoma. Airway patent. NECK: Trachea midline. No JVD CARDIOVASCULAR: Regular rate and rhythm without murmurs, gallops, or rubs. RESPIRATORY: Clear to auscultation. Breath sounds equal bilaterally. No wheezes , rales, or rhonchi. GASTROINTESTINAL: Abdomen soft, Non tender. MUSCULOSKELETAL: Extremities without clubbing, cyanosis, or edema. No calf tenderness. NEUROLOGICAL: Awake and alert. Motor and sensory grossly within normal limits. Normal speech. Hospital Course This is a pleasant 31 y/o Male with Gout, who came to ER 03/05/17 with abdominal pain and left kidney stone she has history of Urolithiasis, scheduled to go to see Urology specialist for consult as outpatient but due to Abdominal pain came to ER, had Fever and Hematuria. admitted for Urology specialist evaluation, given IV fluids, Pain medicine and antibiotics. 03/06: he continue NPO, for probable procedure later today. 03/07: With diagnosis of Left Proximal ureteral stone with mild hydronephrosis, Status post Cystourethroscopy Left retrograde pyelogram, Insertion of left ureteral Stent. by Doctor Eric Poe 4/16/17 okay to discharge from Urology specialist standpoint. no Nausea, vomit or diarrhea. Assessment and Plan 1. Urolithiasis IV fluids, Levaquin IV 750 mg daily, Pain management. With diagnosis of Left Proximal ureteral stone with mild hydronephrosis, Status post Cystourethroscopy Left retrograde pyelogram, Insertion of left ureteral Stent. by Doctor Eric Poe 03/06/17 okay to discharge from Urology specialist given scripts by Specialist to follow as outpatient. DVT prophylaxis: SCDs Code Status Full Code. Discussed Condition With Patient, His and Nurse Miss Fontana and his three children Discharge Planning Discharge Home today Pt Condition on Discharge: Good Discharge Disposition: Discharge Home Discharge Time: <= 30 minutes Discharge Instructions DIET: Follow Instructions for: As Tolerated, No Restrictions Activities you can perform: Regular-No Restrictions Toni Handy MD Mar 07, 2017 11:23
== END 2017-03-07 11:32 | disposition home or self-care (01) | DRG 694 ==
LOC: NEPD 15:57 → NEDA 17:53 → HOCA 19:04
PROVIDERS: ADMIT Internal Medicine; ATTEND Internal Medicine
PROC: BT1F1ZZ Fluoroscopy of Left Kidney, Ureter and Bladder using Low Osmolar Contrast (ICD-10-PCS; 2017-03-06)
PROC: 0T778DZ Dilation of Left Ureter with Intraluminal Device, Via Natural or Artificial Opening Endoscopic (ICD-10-PCS; principal; 2017-03-06 18:03)
DX: N13.2 Hydronephrosis with renal and ureteral calculous obstruction (principal); M10.9 Gout, unspecified
CPT/HCPCS: 74000; 74176; 74420; 76775; 80048; 80053; 81001; 85025; 96360; 96361; 96374; 96375; C1769; C2617; J1170; J1885; J1956; J2250; J2270; J2405; J3010; J7030; Q9967